=== PATIENT | female | born 2000 ===

== ENCOUNTER 2024-05-10 00:40 | Emergency (ER) | payer OTHER ==
--- NOTE | 2024-05-10 01:00 | ED Physician Documentation ---
History of Present Illness - Stated complaint Stated Complaint: FEVER/MIGRAINE/VOMITING/CHEST PX - Chief complaint Chief Complaint: Fever - History obtained from History obtained from: Patient - Additonal information Additional information: HPI from patient. Patient complains of generalized headache, most prominently bilateral retro- orbital; she says this is consistent with her migraine headaches. She took her almotriptan without relief. However, she is also having fever all day today, Tmax 102, nausea and vomiting, dull pain across her anterior chest that is exacerbated with lying flat (supine) but no ameliorating factors, dry/nonproductive cough. On review of systems, she says she also is having diffuse abdominal pain since this morning. Denies sore throat, denies dyspnea, denies dysuria, denies urinary frequency. Review of Systems Constitutional: reports: Fever, Fatigue Cardiac: reports: Chest pain / pressure. denies: Palpitations, Pedal edema, Calf pain Respiratory: reports: Cough. denies: Dyspnea, Hemoptysis, Wheezing GI: reports: Abdominal Pain, Nausea, Vomiting. denies: Constipation, Diarrhea : denies: Dysuria, Frequency Musculoskeletal: denies: Extremity swelling Neurologic: reports: Headache. denies: Generalized weakness, Focal weakness, Numbness PD PAST MEDICAL HISTORY - Past Medical History Past Medical History: Yes Neuro: Migraines - Past Surgical History Past Surgical History: No - Present Medications Home Medications: Ambulatory Orders Medication Instructions Recorded Confirmed Metoclopramide [Reglan] 10 mg PO Q6H PRN #20 tablet 05/10/24 - Allergies Allergies/Adverse Reactions: Allergies Allergy/AdvReac Type Severity Reaction Status Date / Time No Known Drug Allergies Allergy Verified 05/10/24 00:50 - Social History Does the pt smoke?: No Smoking Status: Never smoker PD ED PE NORMAL - Vitals Vital signs reviewed: Yes - General General: Alert and oriented X 3, No acute distress, Well developed/nourished - HEENT HEENT: PERRL, EOMI, Moist mucous membranes - Neck Neck: Supple, no meningeal sign - Cardiac Cardiac: RRR, No murmur - Respiratory Respiratory: No respiratory distress, Clear bilaterally - Abdomen Abdomen: Soft, Non distended, Other (TTP across lower abdomen, most pronounced RLQ without rebound or guarding) - Back Back: Other (left CVAT) - Derm Derm: Normal color, Warm and dry Results - Vitals Vitals: Vital Signs - 24 hr 05/10/24 05/10/24 05/10/24 00:48 02:00 03:54 Temperature 36.2 C L 36.3 C L Heart Rate 105 H 90 70 Respiratory 18 18 16 Rate Blood Pressure 119/78 124/81 H 118/76 O2 Saturation 99 100 98 05/10/24 04:43 Temperature 36.2 C L Heart Rate 72 Respiratory 15 Rate Blood Pressure 111/74 O2 Saturation 99 Oxygen O2 Source Room air - EKG (time done) No standard instances EKG releavant findings:: EKG personally interpreted by author of this note. Relevant findings are: Rate: Rate (enter#) (86) Rhythm: NSR [place]: Normal Intervals: Normal GA QRS: Normal Ischemia: Normal ST segments - Labs Labs: Laboratory Tests 05/10/24 05/10/24 05/10/24 00:51 01:35 02:14 WBC 5.1 RBC 4.44 Hgb 12.4 Hct 39.7 MCV 89.4 MCH 27.9 MCHC 31.2 L RDW 12.9 Plt Count 298 MPV 9.3 Neut # (Auto) 3.0 Lymph # (Auto) 1.4 L [place] # (Auto) 0.5 Eos # (Auto) 0.0 Baso # (Auto) 0.1 Absolute Nucleated RBC 0.00 Nucleated RBC % 0.0 Sodium Potassium Chloride Carbon Dioxide Anion Gap BUN Creatinine Estimated GFR (MDRD) Glucose Calcium Total Bilirubin AST ALT Alkaline Phosphatase Total Protein Albumin Globulin Albumin/Globulin Ratio Lipase Urine Color YELLOW Urine Clarity CLEAR Urine pH 6.0 Ur Specific [place] >=1.030 H Urine Protein TRACE Urine Glucose (UA) NEGATIVE Urine Ketones NEGATIVE Urine Occult Blood NEGATIVE Urine Nitrite NEGATIVE Urine Bilirubin NEGATIVE Urine Urobilinogen 0.2 (NORMAL) Ur Leukocyte Esterase NEGATIVE Ur Microscopic Review NOT INDICATED Urine Culture Comments NOT INDICATED Urine HCG, Qual NEGATIVE Nasal Adenovirus (PCR) NOT DETECTED Nasal B. parapertussis DNA (PCR) NOT DETECTED Nasal Coronavir 229E PCR NOT DETECTED Nasal Coronavir HKU1 PCR NOT DETECTED Nasal Coronavir NL63 PCR NOT DETECTED Nasal Coronavir OC43 PCR NOT DETECTED Nasal Enterovir/Rhinovir PCR NOT DETECTED Nasal Influenza B PCR NOT DETECTED Nasal Influenza A PCR NOT DETECTED Nasal Parainfluen 1 PCR NOT DETECTED Nasal Parainfluen 2 PCR NOT DETECTED Nasal Parainfluen 3 PCR NOT DETECTED Nasal Parainfluen 4 PCR NOT DETECTED Nasal RSV (PCR) NOT DETECTED Nasal B.pertussis DNA PCR NOT DETECTED Nasal C.pneumoniae (PCR) NOT DETECTED Sony Human Metapneumo PCR NOT DETECTED Nasal M.pneumoniae (PCR) NOT DETECTED Nasal SARS-CoV-2 (PCR) NOT DETECTED 05/10/24 02:14 WBC RBC Hgb Hct MCV MCH MCHC RDW Plt Count MPV Neut # (Auto) Lymph # (Auto) [place] # (Auto) Eos # (Auto) Baso # (Auto) Absolute Nucleated RBC Nucleated RBC % Sodium 137 Potassium 3.7 Chloride 106 Carbon Dioxide 23 Anion Gap 8.0 BUN 14 Creatinine 0.7 Estimated GFR (MDRD) 105 Glucose 113 H Calcium 9.6 Total Bilirubin 0.3 AST 15 ALT 19 Alkaline Phosphatase 80 Total Protein 7.3 Albumin 4.1 Globulin 3.2 Albumin/Globulin Ratio 1.3 Lipase 30 Urine Color Urine Clarity Urine pH Ur Specific [place] Urine Protein Urine Glucose (UA) Urine Ketones Urine Occult Blood Urine Nitrite Urine Bilirubin Urine Urobilinogen Ur Leukocyte Esterase Ur Microscopic Review Urine Culture Comments Urine HCG, Qual Nasal Adenovirus (PCR) Nasal B. parapertussis DNA (PCR) Nasal Coronavir 229E PCR Nasal Coronavir HKU1 PCR Nasal Coronavir NL63 PCR Nasal Coronavir OC43 PCR Nasal Enterovir/Rhinovir PCR Nasal Influenza B PCR Nasal Influenza A PCR Nasal Parainfluen 1 PCR Nasal Parainfluen 2 PCR Nasal Parainfluen 3 PCR Nasal Parainfluen 4 PCR Nasal RSV (PCR) Nasal B.pertussis DNA PCR Nasal C.pneumoniae (PCR) Sony Human Metapneumo PCR Nasal M.pneumoniae (PCR) Nasal SARS-CoV-2 (PCR) - Rads (name of study) CT A/P with IV contrast Relevant Findings:: Prelim report reviewed, See rad report PD Medical Decision Making - ED course Complexity details: reviewed results, re-evaluated patient, considered differential, d/w patient ED course: No concerning or diagnostic findings on blood tests. CBC is normal (with insignificant/noncontributory findings of low MCHC, low lymphocytes). Urinalysis is normal except for specific gravity greater than 1.030. ER abdominal panel is negative except for glucose 113. Urine hCG negative. Respiratory PCR panel is negative for the viruses tested on this panel. Because of the tenderness to palpation on abdominal exam, CT abdomen and pelvis with IV contrast was then undertaken. Radiologist's interpretation is: "1. The middle third of the appendix is borderline distended (measuring up to 6mm in width). There is no evidence of intraluminal fluid contents or appendicolith, nor surrounding fat stranding. Finding is likely incidental and not due to early appendicitis. Nevertheless clinical correlation recommended. 2. right ovary is mildly more prominent than the left-sided counterpart. 3. prominent to mildly enlarged right lower quadrant and central mesenteric nodes measuring up to 8 mm" I discussed this case along with CT results with Dr. Delgado (on-call surgeon for [facility]); upshot of our discussion is that the CT findings seem highly unlikely to reflect appendicitis, even more so when considering normal WBC and systemic symptoms (fever, [place]). Results were discussed with patient. In discussing these results, she indicates that she has been told in the past that her right ovary is slightly larger than the left. Return precautions were carefully reviewed, with emphasis placed on returning if her abdominal pain becomes worse, particularly if it is focussed in RLQ. During ED stay, patient is given 1 liter NS IV, 30 mg IV Toradol, 4 mg IV morphine, 4 mg IV Zofran, 25 mg Benadryl, 10 mg IV Reglan. The Toradol and morphine were given for her headache, not for her abdominal pain. Similarly, the Benadryl and Reglan were given as part of an anti-migraine regimen/combination; although she was agreeable to the 4mg IV morphine, she expressed a strong preference to otherwise avoid narcotic/opiate medications during ED stay. Departure - Departure Disposition: 01 Home, Self Care Clinical Impression: Fever Qualifiers: Fever type: unspecified Qualified Code(s): R50.9 - Fever, unspecified Condition: Good Instructions: ED Abdominal Pain Female Non-Specific Abdominal Pain, ED Fever Control Prescriptions: Metoclopramide [Reglan] 10 mg PO Q6H PRN #20 tablet PRN Reason: Nausea / Vomiting Comments: There were no concerning nor diagnostic findings on tonight's tests, including the blood tests, urinalysis, and the CT scan of your abdomen and pelvis. The cause of your symptoms is not apparent at this time. The nasal swab was negative for a number of different viruses tested on this viral panel, including COVID and influenza. Contact your primary care provider to arrange for the next available appointment for follow-up/reevaluation. Certainly, you should return to the emergency department if your symptoms worsen in any way, particularly if your abdominal pain worsens and increases in intensity in the right lower quadrant. Discharge Date/Time: 05/10/24 04:43
[2024-05-10] MEDS: KETOROLAC 30 MG/ML VIAL IM STA (01:35)
[2024-05-10 01:48] LABS: BILIRUBIN,URINE NEGATIVE (NEGATIVE); GLUCOSE, URINE (UA) NEGATIVE (NEGATIVE); KETONES,URINE (UA) NEGATIVE (NEGATIVE); LEUKOCYTE ESTERASE, URINE NEGATIVE (NEGATIVE); NITRITE,URINE NEGATIVE (NEGATIVE); OCCULT BLOOD,URINE NEGATIVE (NEGATIVE); PROTEIN,URINE TRACE mg/dL (NEGATIVE); UROBILINOGEN,URINE 0.2 (NORMAL) E.U./dL (NORMAL)
[2024-05-10 01:50] LABS: CLARITY,URINE CLEAR (CLEAR); HCG UR QUAL NEGATIVE
[2024-05-10 01:56] LABS: B. PARAPERTUSSIS- RESP PCR PAN NOT DETECTED; B. PERTUSSIS- RESP PCR PANEL NOT DETECTED; C. PNEUMONIAE- RESP PCR PANEL NOT DETECTED; CORONAVIRUS 229E-RESP PCR NOT DETECTED; CORONAVIRUS HKU1-RESP PCR NOT DETECTED; CORONAVIRUS NL63-RESP PCR NOT DETECTED; CORONAVIRUS OC43-RESP PCR NOT DETECTED; HUMAN METAPNEUMOVIRUS NOT DETECTED; INFLUENZA A- RESP PCR PANEL NOT DETECTED; INFLUENZA B - RESP PCR PANEL NOT DETECTED; M. PNEUMONIAE- RESP PCR PANEL NOT DETECTED; PARAINFLUENZA VIRUS 1 NOT DETECTED; PARAINFLUENZA VIRUS 2 NOT DETECTED; PARAINFLUENZA VIRUS 3 NOT DETECTED; PARAINFLUENZA VIRUS 4 NOT DETECTED; RHINOVIRUS/ENTEROVIRUS NOT DETECTED; RSV- RESP PCR PANEL NOT DETECTED; SARS-CoV-2 -RESP PCR PANEL NOT DETECTED
[2024-05-10 02:18] LABS: BASOPHILS # (AUTO) 0.1 10^3/uL (0.0-0.1); EOSINOPHILS % (AUTO) 0.8 %; HCT - HEMATOCRIT 39.7 % (37.0-47.0); HGB - HEMOGLOBIN 12.4 g/dL (12.0-16.0); LYMPHOCYTES # (AUTO) 1.4 10^3/uL (1.5-3.5); LYMPHOCYTES % (AUTO) 28.5 %; MEAN CORPUSCULAR HEMOGLOBIN 27.9 pg (27.0-31.0); MEAN CORPUSCULAR HGB CONC 31.2 g/dL (32.0-36.0); MEAN CORPUSCULAR VOLUME 89.4 fL (81.0-99.0); MEAN PLATELET VOLUME 9.3 fL (7.9-10.8); MONOCYTES # (AUTO) 0.5 10^3/uL (0.0-1.0); MONOCYTES % (AUTO) 9.9 %; PLT - PLATELET COUNT 298 10^3/uL (130-450); RED BLOOD COUNT 4.44 10^6/uL (4.20-5.40); RED CELL DISTRIBUTION WIDTH 12.9 % (12.0-15.0); WHITE BLOOD COUNT 5.1 x10^3/uL (4.8-10.8)
[2024-05-10] MEDS ORDERED: iohexoL-300 100 ML VIAL ONE (02:18)
[2024-05-10] MEDS: MORPHINE 2 MG/ML CARPUJECT IVP STA (02:20)
[2024-05-10] MEDS: SODIUM CHLORIDE 0.9% 1,000 ML IV STA (02:20)
[2024-05-10] MEDS: ONDANSETRON 4 MG/2 ML VIAL IVP STA (02:21)
[2024-05-10 02:39] LABS: ALBUMIN 4.1 g/dL (3.2-5.5); ALBUMIN/GLOBULIN RATIO 1.3 (1.0-2.2); BILIRUBIN,TOTAL 0.3 mg/dL (0.2-1.0); CALCIUM 9.6 mg/dL (8.5-10.3); CREATININE 0.7 mg/dL (0.6-1.3); POTASSIUM 3.7 mmol/L (3.5-4.5); TOTAL PROTEIN 7.3 g/dL (6.4-8.9)
[2024-05-10] MEDS: iohexoL-300 100 ML VIAL IVP ONE (02:58)
[2024-05-10] MEDS: diphenhydrAMINE INJ 50 MG/ML VIAL IVP STA (04:34)
[2024-05-10] MEDS: METOCLOPRAMIDE 10 MG/2 ML VIAL IVP STA (04:35)
[2024-05-10 04:46] VITALS: BP 111/74; O2SAT 99
--- NOTE | 2024-05-10 08:23 | CT Report ---
PROCEDURE: Abdomen/Pelvis W INDICATIONS: abd. pain/tenderness, fever CONTRAST: Omni 300, 100mls TECHNIQUE: After the administration of intravenous contrast, a CT scan of the abdomen and pelvis was performed. Images were recorded and evaluated at appropriate window settings. Reformats: coronal and sagittal. F or radiation dose reduction, the following was used: automated exposure control, adjustment of mA and /or kV according to patient size. COMPARISON: None. FINDINGS: Image quality: Diagnostic Lower chest: Unremarkable Liver: Suspected focal fat adjacent to falciform ligament. Gallbladder and biliary system: Unremarkable, nondilated Pancreas: No ductal dilation Spleen: Nonenlarged Adrenals: No discrete nodules Kidneys: No solid mass or hydronephrosis Vessels and lymph nodes: The main portal vein is patent. No abdominal aortic aneurysm. No pathologic lymph nodes by size criteria. Bowel and peritoneum: No evidence of small bowel obstruction. No pathologic ascites or drainable absc ess. The midportion of the appendix measures 6 to 7 mm. No high-grade inflammatory changes are identi fied. The appendiceal tip is nondilated. Mesenteric lymph nodes in the right lower quadrant measure a t the upper limit of normal. Body wall: Unremarkable Pelvis: Prominent right ovary compared to the left. Reproductive organs otherwise unremarkable on chavarria ited CT evaluation. The bladder is unremarkable. Bones: No acute or suspicious osseous finding. IMPRESSION: Prominent diameter of the mid appendix measuring 6 to 7 mm, without significant surrounding inflammat ion. The appendiceal tip is nondilated. If symptoms worsen, consider reimaging to reevaluate. Prominent right ovary compared to the left. Consider pelvic ultrasound if there is concern for torsio n. Upper limit of normal mesenteric lymph nodes can sometimes be seen with mesenteric adenitis. No significant discrepancy from prelim report. Reviewed by: Bin Wayne MD on 05/10/2024 8:22 AM PDT Approved by: Bin Wayne MD on 05/10/2024 8:22 AM PDT Station ID: [id number]
== END 2024-05-10 04:43 | disposition home or self-care (01) ==
LOC: EDBD → ED 00:40
DX: R50.9 Fever, unspecified (principal); R51.9 Headache, unspecified
CPT/HCPCS: 36415; 74177; 80053; 81003; 81025; 83690; 85025; 87633; 93005; 96372; 96374; 96375; 99285; J1200; J2765; Q9967; 81001; 87086